=== PATIENT | female | born 1930 | race Hispanic/Latino ===

== ENCOUNTER 2017-09-24 12:26 | Inpatient (IN) | payer MEDICARE, OTHER ==
[~2017-09-24] VITALS: Ht 152.4 cm; Wt 59.0 kg
[~2017-09-24 12:26] MED LIST: ARTHRITIS MEDICATION; ASPIRIN81 M1 PO
[2017-09-24 12:56] VITALS: BP 114/80
[2017-09-24 13:09] LABS: BASOPHILS % (AUTO) 0.7 % (0.0-2.0); EOSINOPHILS % (AUTO) 1.3 % (0.0-3.0); HEMATOCRIT 38.5 % (37.0-47.0); HEMOGLOBIN 12.7 G/DL (12.0-16.0); LYMPHOCYTES % (AUTO) 16.2 % (20.0-45.0); MEAN CORPUSCULAR VOLUME 92 FL (80-99); MONOCYTES % (AUTO) 8.1 % (1.0-10.0); NEUTROPHILS % (AUTO) 73.7 % (45.0-75.0); PLATELET COUNT 181 K/UL (150-450); RED BLOOD COUNT 4.18 M/UL (4.20-5.40); RED CELL DISTRIBUTION WIDTH 14.2 % (11.6-14.8); WHITE BLOOD COUNT 7.7 K/UL (4.8-10.8)
[2017-09-24 13:32] LABS: ANION GAP 6 mmol/L (5-15); BLOOD UREA NITROGEN 15 mg/dL (7-18); CALCIUM 9.7 MG/DL (8.5-10.1); CARBON DIOXIDE 29 MMOL/L (21-32); CHLORIDE 99 MMOL/L (98-107); CREATININE 0.8 MG/DL (0.55-1.30); POTASSIUM 4.4 MMOL/L (3.5-5.1); SODIUM 134 MMOL/L (136-145)
[2017-09-24 13:37] LABS: ALANINE AMINOTRANSFERASE 21 U/L (12-78); ALBUMIN 3.6 G/DL (3.4-5.0); ALBUMIN/GLOBULIN RATIO 0.8 (1.0-2.7); ALKALINE PHOSPHATASE 153 U/L (46-116); ASPARTATE AMINO TRANSFERASE 46 U/L (15-37); BILIRUBIN,TOTAL 0.4 MG/DL (0.2-1.0)
--- NOTE | 2017-09-24 14:01 | Diagnostic Imaging Report ---
Indications: hip pain Findings: Two views of the left hip were obtained. No acute fracture is demonstrated. Bones are osteopenic. Alignment of the hip is within normal limits. Soft tissues are unremarkable. Extensive femoral artery calcification noted. Impression: Negative for acute injury.
--- NOTE | 2017-09-24 14:02 | Emergency Room Report ---
History of Present Illness General Chief Complaint: Multiple Trauma/Fall Source: Patient Present Illness HPI This patient states she was trying to go down steps and missed a step and fell onto her left hip. The fall was yesterday. She has been unable to ambulate or bear weight on the left leg ever since. She has no other injuries or complaints. She denies chest pain or shortness of breath. She denies abdominal pain. She denies headache or neck pain. She denies head injury. Allergies: Coded Allergies: PENICILLINS (Verified Allergy, Unknown, Rash, 09/24/17) Patient History Past Medical History: see triage record, HTN, GERD Past Surgical History: CABG Social History: Denies: smoking, alcohol use, drug use Reviewed Nursing Documentation: PMH: Agreed; PSxH: Agreed Nursing Documentation-PMH Hx Cardiac Problems: Yes - SLOW HEARTBEAT; HOSPITALIZED AT [facility] Hx Hypertension: Yes Hx Cancer: No Hx Neurological Problems: No Review of Systems All Other Systems: negative except mentioned in HPI Physical Exam Vital Signs Date Time Temp Pulse Resp B/P (MAP) Pulse Ox O2 Delivery O2 Flow Rate FiO2 09/24/17 12:23 97.5 96 16 141/80 98 Room Air 97.5 Sp02 EP Interpretation: reviewed, normal General Appearance: no apparent distress, alert, GCS 15, non-toxic Head: normocephalic, atraumatic Eyes: bilateral eye normal inspection, bilateral eye PERRL ENT: hearing grossly normal, normal pharynx, no angioedema, normal voice Neck: full range of motion, supple/symm/no masses Respiratory: chest non-tender, lungs clear, normal breath sounds, no respiratory distress, no retraction, no accessory muscle use, speaking full sentences Cardiovascular #1: regular rate, rhythm, no edema Gastrointestinal: normal bowel sounds, non tender, soft, non-distended, no guarding, no rebound Rectal: deferred Musculoskeletal: other - L. hip TTP laterally. Hip externally rotated. +pain w/ ROM of L. hip. Neurologic: alert, oriented x3, responsive, motor strength/tone normal, sensory intact, speech normal Psychiatric: judgement/insight normal, mood/affect normal, no suicidal/ homicidal ideation Skin: normal color, no rash, warm/dry, well hydrated Medical Decision Making Diagnostic Impression: Primary Impression: Acetabulum fracture, left ER Course This patient has an acetabular fracture of the left acetabulum. She is unable to ambulate. She'll be admitted for evaluation by orthopedics and for further evaluation, monitoring and treatment. Laboratory Tests Test 09/24/17 12:45 09/24/17 14:30 White Blood Count 7.7 K/UL (4.8-10.8) Red Blood Count 4.18 M/UL (4.20-5.40) L Hemoglobin 12.7 G/DL (12.0-16.0) Hematocrit 38.5 % (37.0-47.0) Mean Corpuscular Volume 92 FL (80-99) Mean Corpuscular Hemoglobin 30.5 PG (27.0-31.0) Mean Corpuscular Hemoglobin Concent 33.1 G/DL (32.0-36.0) Red Cell Distribution Width 14.2 % (11.6-14.8) Platelet Count 181 K/UL (150-450) Mean Platelet Volume 7.0 FL (6.5-10.1) Neutrophils (%) (Auto) 73.7 % (45.0-75.0) Lymphocytes (%) (Auto) 16.2 % (20.0-45.0) L Monocytes (%) (Auto) 8.1 % (1.0-10.0) Eosinophils (%) (Auto) 1.3 % (0.0-3.0) Basophils (%) (Auto) 0.7 % (0.0-2.0) Prothrombin Time 10.2 SEC (9.30-11.50) Prothrombin Time INR 1.0 (0.9-1.1) PTT 26 SEC (23-33) Sodium Level 134 MMOL/L (136-145) L Potassium Level 4.4 MMOL/L (3.5-5.1) Chloride Level 99 MMOL/L (98-107) Carbon Dioxide Level 29 MMOL/L (21-32) Anion Gap 6 mmol/L (5-15) Blood Urea Nitrogen 15 mg/dL (7-18) Creatinine 0.8 MG/DL (0.55-1.30) Estimate Glomerular Filtration Rate mL/min (>60) Glucose Level 111 MG/DL (74-106) H Calcium Level 9.7 MG/DL (8.5-10.1) Total Bilirubin 0.4 MG/DL (0.2-1.0) Aspartate Amino Transferase (AST) 46 U/L (15-37) H Alanine Aminotransferase (ALT) 21 U/L (12-78) Alkaline Phosphatase 153 U/L (46-116) H Total Protein 8.1 G/DL (6.4-8.2) Albumin 3.6 G/DL (3.4-5.0) Globulin 4.5 g/dL Albumin/Globulin Ratio 0.8 (1.0-2.7) L Urine Color Pending Urine Appearance Pending Urine pH Pending Urine Specific [place] Pending Urine Protein Pending Urine Glucose (UA) Pending Urine Ketones Pending Urine Occult Blood Pending Urine Nitrite Pending Urine Bilirubin Pending Urine Urobilinogen Pending Urine Leukocyte Esterase Pending Last Vital Signs Date Time Temp Pulse Resp B/P (MAP) Pulse Ox O2 Delivery O2 Flow Rate FiO2 09/24/17 12:56 97.5 78 16 114/80 98 Room Air 97.5 Disposition: ADMITTED INPATIENT Condition: Stable Referrals: [facility],REFERRING (PCP) JEZ VILLANUEVA D.O. Sep 24, 2017 14:02
[2017-09-24] MEDS ORDERED: NKM (14:41)
--- NOTE | 2017-09-24 14:46 | Diagnostic Imaging Report ---
Indication: Abdominal pain Technique: Continuous helical transaxial imaging of the pelvis was obtained from the iliac crest to the pubic symphysis. Coronal 2-D reformats were also obtained. Study obtained in a Siemens sensation [address] Intravenous non-ionic contrast was administered. Total Dose length Product (DLP): 302.[address] Dose Index Volume (CTDIvol): 11.14 mGy Comparison: None Findings: There is a nondisplaced fracture involving the junction of the left superior pubic ramus and the anterior column of the left acetabulum. The fracture is nondisplaced and probably intra-articular extending into the left hip joint. The left femoral neck and the remainder of the visualized left proximal femur appears normal. The sacrum and remainder of the pelvic bones show no evidence of acute injury. Bones are osteopenic. There is vacuum phenomena and narrowing of the intervertebral discs at L5-S1 and L4-5. There is hypertrophy of the facets at L4-5 and L5-S1. The facet disease appears to be worse on the left side. Vacuum phenomenon noted within the sacroiliac joints. The urinary bladder is moderately distended. There are diverticula within the visualized part of the colon. The appendix is normal. An atrophic uterus is noted. IMPRESSION: Acute nondisplaced fracture involving the anterior column of the left acetabulum. No other fractures are identified. This is not visualized on plain film even in retrospect. Incidental findings including degenerative changes of the lower lumbar spine, distended urinary bladder, arterial vascular disease, normal appendix and diverticulosis of the colon The CT scanner at [facility] is accredited by the [employer] and the scans are performed using dose optimization techniques as appropriate to a performed exam including Automatic Exposure control.
[2017-09-24 14:55] VITALS: BP 139/68
[2017-09-24 14:55] LABS: APPEARANCE,URINE SLIGHTLY CLOUDY; BILIRUBIN, URINE NEGATIVE (NEGATIVE); COLOR,URINE PALE YELLOW; GLUCOSE, URINE (UA) NEGATIVE (NEGATIVE); KETONES,URINE NEGATIVE (NEGATIVE); LEUKOCYTE ESTERASE ,URINE 2+ (NEGATIVE); NITRITE,URINE NEGATIVE (NEGATIVE); PH,URINE 7 (4.5-8.0); PROTEIN,URINE NEGATIVE (NEGATIVE); UROBILINOGEN,URINE NORMAL MG/DL (0.0-1.0)
[2017-09-24] MEDS ORDERED: Morphine Sulfate 4mg/ml Inj IVP ONE (15:15)
[2017-09-24 16:00] VITALS: BP 149/77
[2017-09-24] MEDS ORDERED: Hydromorphone 0.5mg/0.5ml inj IVP PRN (17:30)
[2017-09-24] MEDS ORDERED: Acetaminophen 650 MG SUPP RECTAL PRN ×2 (17:30)
[2017-09-24] MEDS ORDERED: Miralax 17gm pkt ORAL PRN (17:30)
--- NOTE | 2017-09-24 17:30 | History and Physical ---
History of Present Illness General Date patient seen: Sep 24, 2017 Time patient seen: 17:29 Reason for Hospitalization: Multiple Trauma/Fall, L hip fracture Present Illness HPI 87y/o female with pmh of HTN, CAD s/p CABG, GERD who presents with L hip pain s/ p fall. Per daughter at bedside pt fell yesterday when she missed a step trying to go downstairs. C/o L hip pain afterwards. She has been unable to ambulate or bear weight on L leg since. Denies f/c, n/v, d/c, chest pain, SOB, abd pain. At baseline pt able to ambulate a few feet and at least a flight of stairs. Denies h/o PA/CHF/DM/PVD/CVA. PMH: CAD s/p CABG, GERD, HTN Social history: lives w/ daughter, denies T/E/D FMH: [place] Allergies: Coded Allergies: PENICILLINS (Verified Allergy, Unknown, Rash, 09/24/17) Medication History Scheduled Aspirin (Aspirin), 81 MG PO DAILY, (Reported) No Known Medications* (NKM - No Known Medications*), 0 ., (Reported) Miscellaneous Medications [Arthritis Medication], (Reported) Patient History History Provided By: Patient, Family Member, Medical Record Healthcare decision maker N Resuscitation status Advanced Directive on File Review of Systems Constitutional: Reports: no symptoms Eye: Reports: no symptoms ENT: Reports: no symptoms Respiratory: Reports: no symptoms Cardiovascular: Reports: no symptoms Gastrointestinal: Reports: no symptoms Genitourinary: Reports: no symptoms Musculoskeletal: Reports: joint pain Skin: Reports: no symptoms Psychiatric: Reports: no symptoms Neurological: Reports: no symptoms Endocrine: Reports: no symptoms Hematologic/Lymphatic: Reports: no symptoms Physical Exam Physical Exam Narrative General: alert, cooperative, no distress, appears stated age Head: normocephalic, without obvious abnormality, atraumatic Eyes: conjunctivae/corneas clear. PERRL, EOM's intact Throat: lips, mucosa, and tongue normal. MMM Neck: supple, symmetrical, trachea midline, and no JVD Lungs: clear to auscultation bilaterally Heart: regular rate and rhythm, S1, S2 normal, no murmur, click, rub or gallop Abdomen: soft, non-tender, non-distended, bowel sounds normal; no masses or organomegaly Extremities: extremities normal, atraumatic, no cyanosis or edema Pulses: 2+ and symmetric Skin: skin color, texture, turgor normal; no rashes or lesions Neurologic: grossly normal, no focal deficits Last 24 Hour Vital Signs Date Time Temp Pulse Resp B/P (MAP) Pulse Ox O2 Delivery O2 Flow Rate FiO2 09/24/17 16:30 83 20 139/68 98 Room Air 09/24/17 14:55 83 20 139/68 98 Room Air 09/24/17 12:56 97.5 78 16 114/80 98 Room Air 97.5 09/24/17 12:23 97.5 96 16 141/80 98 Room Air 97.5 Laboratory Tests Test 09/24/17 12:45 09/24/17 14:30 White Blood Count 7.7 K/UL (4.8-10.8) Red Blood Count 4.18 M/UL (4.20-5.40) L Hemoglobin 12.7 G/DL (12.0-16.0) Hematocrit 38.5 % (37.0-47.0) Mean Corpuscular Volume 92 FL (80-99) Mean Corpuscular Hemoglobin 30.5 PG (27.0-31.0) Mean Corpuscular Hemoglobin Concent 33.1 G/DL (32.0-36.0) Red Cell Distribution Width 14.2 % (11.6-14.8) Platelet Count 181 K/UL (150-450) Mean Platelet Volume 7.0 FL (6.5-10.1) Neutrophils (%) (Auto) 73.7 % (45.0-75.0) Lymphocytes (%) (Auto) 16.2 % (20.0-45.0) L Monocytes (%) (Auto) 8.1 % (1.0-10.0) Eosinophils (%) (Auto) 1.3 % (0.0-3.0) Basophils (%) (Auto) 0.7 % (0.0-2.0) Prothrombin Time 10.2 SEC (9.30-11.50) Prothromb Time International Ratio 1.0 (0.9-1.1) Activated Partial Thromboplast Time 26 SEC (23-33) Sodium Level 134 MMOL/L (136-145) L Potassium Level 4.4 MMOL/L (3.5-5.1) Chloride Level 99 MMOL/L (98-107) Carbon Dioxide Level 29 MMOL/L (21-32) Anion Gap 6 mmol/L (5-15) Blood Urea Nitrogen 15 mg/dL (7-18) Creatinine 0.8 MG/DL (0.55-1.30) Estimat Glomerular Filtration Rate mL/min (>60) Glucose Level 111 MG/DL (74-106) H Calcium Level 9.7 MG/DL (8.5-10.1) Total Bilirubin 0.4 MG/DL (0.2-1.0) Aspartate Amino Transf (AST/SGOT) 46 U/L (15-37) H Alanine Aminotransferase (ALT/SGPT) 21 U/L (12-78) Alkaline Phosphatase 153 U/L (46-116) H Total Protein 8.1 G/DL (6.4-8.2) Albumin 3.6 G/DL (3.4-5.0) Globulin 4.5 g/dL Albumin/Globulin Ratio 0.8 (1.0-2.7) L Urine Color Pale yellow Urine Appearance Slightly cloudy Urine pH 7 (4.5-8.0) Urine Specific [place] 1.015 (1.005-1.035) Urine Protein Negative (NEGATIVE) Urine Glucose (UA) Negative (NEGATIVE) Urine Ketones Negative (NEGATIVE) Urine Occult Blood 3+ (NEGATIVE) H Urine Nitrite Negative (NEGATIVE) Urine Bilirubin Negative (NEGATIVE) Urine Urobilinogen Normal MG/DL (0.0-1.0) Urine Leukocyte Esterase 2+ (NEGATIVE) H Urine RBC 2-4 /HPF (0 - 2) H Urine WBC 10-15 /HPF (0 - 2) H Urine Squamous Epithelial Cells Many /LPF (NONE/OCC) H Urine Bacteria Occasional /HPF (NONE) Height (Feet): 5 Weight (Pounds): 130 Medications Current Medications Medications (Trade) Dose Ordered Sig/Fernandez Route PRN Reason Start Time Stop Time Status Last Admin Dose Admin Acetaminophen (Tylenol) 650 mg Q4H PRN ORAL Mild Pain (Pain Scale 1-3) 09/24/17 17:30 10/24/17 17:29 UNV Acetaminophen (Tylenol) 650 mg Q4H PRN ORAL fever 09/24/17 17:30 10/24/17 17:29 UNV Acetaminophen (Tylenol) 650 mg Q4H PRN RECTAL Mild Pain (Pain Scale 1-3) 09/24/17 17:30 10/24/17 17:29 UNV Acetaminophen (Tylenol) 650 mg Q4H PRN RECTAL fever 09/24/17 17:30 10/24/17 17:29 UNV Bisacodyl (Dulcolax) 10 mg HSPRN PRN RECTAL Constipation 09/24/17 17:30 10/24/17 17:29 UNV Dextrose (Dextrose 50%) 25 ml STAT PRN IV Hypoglycemia 09/24/17 17:30 10/24/17 17:29 UNV Dextrose (Dextrose 50%) 50 ml STAT PRN IV Hypoglycemia 09/24/17 17:30 10/24/17 17:29 UNV Dextrose/Sodium Chloride 1,000 ml @ 75 mls/hr [id number] IV 09/24/17 18:21 10/24/17 18:20 UNV Docusate Sodium (Colace) 100 mg EVERY 12 HOURS ORAL 09/24/17 21:00 10/24/17 20:59 UNV Hydromorphone HCl (Dilaudid) 0.5 mg Q4H PRN IVP moderate to severe pain 09/24/17 17:30 10/01/17 17:29 UNV Morphine Sulfate (Morphine Sulfate) 4 mg Q4H PRN IVP For Pain 09/24/17 17:30 10/01/17 17:29 UNV Ondansetron HCl (Zofran) 4 mg Q6H PRN IVP Nausea & Vomiting 09/24/17 17:30 10/24/17 17:29 UNV Polyethylene Glycol (Miralax) 17 gm HSPRN PRN ORAL Constipation 09/24/17 17:30 10/24/17 17:29 UNV Sodium Chloride 1,000 ml @ 150 mls/hr Q6H40M IV 09/24/17 15:15 10/24/17 15:14 09/24/17 15:10 Assessment/Plan Problem List: (1) Acetabulum fracture, left ICD Codes: S32.402A - Unspecified fracture of left acetabulum, initial encounter for closed fracture SNOMED: [id number] Status: stable Assessment/Plan Admit inpt Ortho consulted in ED (Dr. Gaytan) NPO at [place] for possible OR mIVFs Hold home ASA Check TTE Pain control, bowel regimen Supportive care DVT ppx: SCDs for now, start AC postop FULL CODE D/w pt/pt's daughter, RN, ER physician regarding mgmt Mary Noel M.D. Sep 24, 2017 17:30
--- NOTE | 2017-09-24 18:09 | Diagnostic Imaging Report ---
EXAM: XR Chest, 1 View CLINICAL HISTORY: PREOP TECHNIQUE: Frontal view of the chest. COMPARISON: No relevant prior studies available. FINDINGS: Lungs: Mild basilar atelectasis. Pleural space: Unremarkable. No pneumothorax. Heart: Unremarkable. No cardiomegaly. Mediastinum: Unremarkable. Bones/joints: Sternotomy. IMPRESSION: Mild basilar atelectasis.
[2017-09-24] MEDS: D5NS 1,000 ML IV SCH (18:14)
[2017-09-24] MEDS: Morphine Sulfate 4mg/ml Inj IVP PRN (18:14)
[2017-09-24] MEDS ORDERED: D5 1/2NS 1,000 ML IV SCH (18:21)
[2017-09-24 20:00] VITALS: BP 150/71
[2017-09-24] MEDS: Docusate 100mg cap ORAL SCH (20:35)
[2017-09-25] VITALS (7 sets, daily range): BP systolic 123–141; BP diastolic 63–70
[2017-09-25] MEDS: Morphine Sulfate 4mg/ml Inj IVP PRN ×3 (01:02→19:59)
[2017-09-25] MEDS: D5NS 1,000 ML IV SCH ×2 (06:19→19:59)
[2017-09-25 08:39] LABS: BASOPHILS % (AUTO) 0.8 % (0.0-2.0); HEMATOCRIT 34.2 % (37.0-47.0); HEMOGLOBIN 11.7 G/DL (12.0-16.0); LYMPHOCYTES % (AUTO) 24.1 % (20.0-45.0); MEAN CORPUSCULAR VOLUME 93 FL (80-99); MONOCYTES % (AUTO) 8.1 % (1.0-10.0); NEUTROPHILS % (AUTO) 63.1 % (45.0-75.0); PLATELET COUNT 151 K/UL (150-450); RED BLOOD COUNT 3.69 M/UL (4.20-5.40); RED CELL DISTRIBUTION WIDTH 14.4 % (11.6-14.8); WHITE BLOOD COUNT 7.5 K/UL (4.8-10.8)
[2017-09-25 08:53] LABS: ANION GAP 7 mmol/L (5-15); BLOOD UREA NITROGEN 9 mg/dL (7-18); CALCIUM 9.3 MG/DL (8.5-10.1); CARBON DIOXIDE 26 MMOL/L (21-32); CHLORIDE 101 MMOL/L (98-107); CREATININE 0.8 MG/DL (0.55-1.30); POTASSIUM 4.4 MMOL/L (3.5-5.1); SODIUM 134 MMOL/L (136-145)
[2017-09-25] MEDS: Docusate 100mg cap ORAL SCH ×2 (09:00→19:58)
[2017-09-26] MEDS: Morphine Sulfate 4mg/ml Inj IVP PRN ×2 (03:47→19:16)
[2017-09-26 04:10] VITALS: BP 126/61
[2017-09-26 07:55] VITALS: BP 149/69
[2017-09-26] MEDS: Docusate 100mg cap ORAL SCH ×2 (08:27→21:09)
[2017-09-26] MEDS: D5NS 1,000 ML IV SCH ×2 (11:03→23:35)
[2017-09-26 11:59] VITALS: BP 142/70
--- NOTE | 2017-09-26 14:27 | Orthopedic Progress Note ---
Orthopedic - Progress Note Subjective Additional Comments left hip pain. Objective Vital Signs Last 24 Hour Vital Signs Date Time Temp Pulse Resp B/P (MAP) Pulse Ox O2 Delivery O2 Flow Rate FiO2 09/26/17 11:59 98.0 72 18 142/70 98 Room Air 98.0 09/26/17 07:55 97.8 82 19 149/69 98 Room Air 97.8 09/26/17 04:10 97.5 63 19 126/61 97 Room Air 97.5 09/25/17 23:59 97.1 72 19 132/66 96 Room Air 97.1 09/25/17 20:59 96.4 09/25/17 20:05 96.4 79 18 129/64 97 Room Air 96.4 09/25/17 16:11 97.7 80 18 133/67 98 Room Air 97.7 I&O Intake and Output 09/25/17 09/26/17 19:00 07:00 Intake Total 975 ml 900 ml Output Total 1650 ml Balance 975 ml -750 ml Intake IV Total 975 ml 900 ml Output Urine Total 1650 ml Drains: none Neuro Status: normal Vascular Status: normal Plan Plan: PT, discharge plan Additional Comments May be WBAT without restriction left lower extremity. D/C to home with services vs SNF/Rehab when medically safe. Follow up prn Camilo Gaytan MD Sep 26, 2017 14:27
[2017-09-26 15:03] LABS: ANION GAP 10 mmol/L (5-15); BLOOD UREA NITROGEN 7 mg/dL (7-18); CALCIUM 8.8 MG/DL (8.5-10.1); CARBON DIOXIDE 25 MMOL/L (21-32); CHLORIDE 98 MMOL/L (98-107); CREATININE 0.7 MG/DL (0.55-1.30); POTASSIUM 4.2 MMOL/L (3.5-5.1); SODIUM 133 MMOL/L (136-145)
[2017-09-26 16:00] VITALS: BP 109/61
[2017-09-26] MEDS ORDERED: D5NS 1000ml IV ONE (17:07)
--- NOTE | 2017-09-26 17:30 | Progress Note ---
DATE: 09/25/2017 SUBJECTIVE: An 87-year-old female with left hip fracture, status post fall from stairs. The patient continued to have pain orthopedic consultation. We will continue pain control the patient n.p.o. for possible surgical intervention. We will defer that to Dr. Gaytan. Otherwise, the patient is doing well, in no apparent distress. OBJECTIVE: VITAL SIGNS: Temperature 97.7, pulse of 80, respirations 18, blood pressure . GENERAL: Awake, alert, throbbing pain in her hips. HEENT: PERRLA. CARDIOVASCULAR: S1, S2. Regular rate and rhythm. RESPIRATORY: Bilateral breath sounds. No wheezing, rhonchi, or rales. ABDOMEN: Soft, nontender, nondistended. LOWER EXTREMITIES: The patient has pain in her lower extremities . IMPRESSION AND PLAN: fracture of the left. Ortho consulted recommendations. Keep the patient NPO, hold on aspirin. Pain control, bowel regimen, and supportive care. Aylin Oh MD DR: POONAM JOB#: [id number] CC:
[2017-09-26 20:00] VITALS: BP 118/69
[2017-09-26] MEDS ORDERED: OMEPRAZOLE20 M3 ORAL (20:19)
[2017-09-26 20:42] VITALS: BP 118/69
--- NOTE | 2017-09-26 22:45 | Progress Note ---
DATE: 09/26/2017 SUBJECTIVE: The patient is seen and examined. Resting comfortably. No acute distress. The patient still has pain on ambulation especially when working with physical therapy. She continued to be on morphine for pain management. We will continue to monitor the patient. Seen by Orthopedic Surgery. Did not recommend surgery at this time. We will continue on conservative management. Once the patient is medically stable, she can be discharged back to [facility] facility. OBJECTIVE: VITAL SIGNS: Temperature 98, respirations 18, pulse 72, and blood pressure 142/70. ASSESSMENT AND PLAN: fracture of the left acetabulum. Continue home medications. Continue pain management. Continue PT. Ortho consulted. No surgical intervention at this time. Continue bowel regimen. Continue supportive care. Aylin Oh MD DR: LA JOB#: [id number] CC:
--- NOTE | 2017-09-27 | Consultation ---
DATE OF CONSULTATION: 09/25/2017 ORTHOPEDIC CONSULTATION CONSULTING PHYSICIAN: Camilo Gaytan M.D. REQUESTING PHYSICIAN: Guille Strickland M.D. DIAGNOSIS: Left acetabular nondisplaced fracture (pelvic fracture). HISTORY: The patient is an 87-year-old woman, who slipped and fell at home. She was seen in the emergency room. She was diagnosed with possible left hip fracture and radiographs/CT scan revealed a nondisplaced left acetabular fracture outside of the weightbearing area. She has had difficulty ambulating and pain since that time. PAST MEDICAL HISTORY: She has a past medical history significant for coronary artery disease, status post coronary artery bypass grafting. She has a history of hypertension and gastroesophageal reflux disorder. MEDICATIONS: She takes aspirin. ALLERGIES: She has an allergy to penicillin. REVIEW OF SYSTEMS: A 12-point review of systems negative other than history of present illness. PHYSICAL EXAMINATION: GENERAL: She is a frail elderly woman, who does not speak German. EXTREMITIES: Any movement of the left lower extremity causes mild hip pain. Distal left lower extremity neurovascular examination is grossly intact. DIAGNOSTIC DATA: X-ray/CT scan reveal a nondisplaced acetabular fracture outside the weightbearing surface (pelvic fracture). ASSESSMENT AND PLAN: The patient is an 87-year-old woman, who slipped and fell, and has an insufficiency fracture of her pelvis. She may be weightbearing as her pain tolerates. She has no restrictions related to her pelvic fracture. She may be mobilized as needed. If she is going to be bed rest, DVT prophylaxis is recommended. Thank you for the opportunity to consult. No need for operative intervention. Camilo Gaytan M.D. DR: Symone JOB#: [id number] CC:
[2017-09-27 00:13] VITALS: BP 121/64
[2017-09-27] MEDS: Morphine Sulfate 4mg/ml Inj IVP PRN ×2 (00:26→11:52)
[2017-09-27] MEDS: D5NS 1,000 ML IV SCH ×2 (03:00→14:51)
[2017-09-27 04:42] VITALS: BP 142/72
[2017-09-27 08:00] VITALS: BP 97/52
[2017-09-27] MEDS: Docusate 100mg cap ORAL SCH ×2 (08:29→21:10)
[2017-09-27 12:00] VITALS: BP 155/65
--- NOTE | 2017-09-27 13:10 | General Progress Note ---
Subjective Date patient seen: Sep 27, 2017 Allergies: Coded Allergies: PENICILLINS (Verified Allergy, Unknown, Rash, 09/24/17) Objective Last 24 Hour Vital Signs Date Time Temp Pulse Resp B/P (MAP) Pulse Ox O2 Delivery O2 Flow Rate FiO2 09/27/17 12:00 99.0 70 18 155/65 97 Room Air 99.0 09/27/17 11:52 97.9 09/27/17 08:00 97.9 65 17 97/52 100 Room Air 97.9 09/27/17 05:00 Room Air 09/27/17 04:42 98.2 87 18 142/72 100 98.2 09/27/17 01:00 Room Air 09/27/17 00:13 98.4 69 18 121/64 96 98.4 09/27/17 00:00 Room Air 09/26/17 20:42 98.6 72 17 118/69 95 98.6 09/26/17 20:00 98.6 72 17 118/69 95 Room Air 98.6 09/26/17 19:16 97.6 09/26/17 16:00 97.6 62 18 109/61 98 Room Air 97.6 Intake and Output 09/26/17 09/27/17 19:00 07:00 Intake Total 675 ml 915 ml Output Total 400 ml Balance 275 ml 915 ml Intake Oral 240 ml IV Total 675 ml 675 ml Output Urine Total 400 ml # Voids 1 Laboratory Tests 09/26/17 14:36: Sodium Level 133L, Potassium Level 4.2, Chloride Level 98, Carbon Dioxide Level 25, Anion Gap 10, Blood Urea Nitrogen 7, Creatinine 0.7, Estimat Glomerular Filtration Rate , Glucose Level 121H, Calcium Level 8.8 Height (Feet): 5 Height (Inches): 0.00 Weight (Pounds): 130 Clementine Sawant NP Sep 27, 2017 13:10
[2017-09-27 16:00] VITALS: BP 129/62
[2017-09-27] MEDS ORDERED: HydrOXYzine tab 25 MG TAB ORAL PRN (18:15)
--- NOTE | 2017-09-28 12:55 | Cardiology Report ---
APPROVED REPORT EXAM: Two-dimensional and M-mode echocardiogram with Doppler and color Doppler. INDICATION Pre-Op M-Mode DIMENSIONS IVSd1.1 (0.7-1.1cm)Left Atrium (MM)2.5 (1.6-4.0cm) LVDd3.7 (3.5-5.6cm)Aortic Root2.4 (2.0-3.7cm) PWd1.1 (0.7-1.1cm)Aortic Cusp Exc.1.7 (1.5-2.0cm) LVDs1.7 (2.5-4.0cm) PWs2.0 cm Technically difficult and limited study due to poor acoustic windows. Study quality precludes accurate assessment of regional wall motion. Normal left ventricular chamber size. Mildly depressed systolic function and wall motion. Left ventricular ejection fraction estimated to be55-60 %. Borderline left ventricular hypertrophy. Anterior Echo-free space, may be due to pericardial fat or effusion. All other cardiac chamber sizes are within normal limits. Mild focal aortic valve sclerosis with adequate cusp excursion. Mildly thickened mitral valve leaflets with normal excursion. Mild mitral annulus and aortic root calcification. Pulmonic valve not visualized. Normal tricuspid valve structure. IVC is normal in size with physiological collapse. A color flow and spectral Doppler study was performed and revealed: Mild aortic insufficiency. No mitral regurgitation. Mitral diastolic velocities suggest mild left ventricular diastolic dysfunction (Grade I). Mild tricuspid regurgitation. Tricuspid systolic velocities suggests peak right ventricular systolic pressure of 44 mmHg, consistent with mild pulmonary hypertension.
--- NOTE | 2017-09-28 14:14 | Discharge Summary ---
Discharge Summary Hospital Course Date of Admission Sep 24, 2017 at 14:21 Date of Discharge Sep 27, 2017 at 21:35 Admitting Diagnosis hip fracture, inability to ambulate HPI Heather Rodriguez is a 87 year old female who was admitted on Sep 24, 2017 at 14:21 for Hip Fracture,Inability To Ambulate 87y/o female with pmh of HTN, CAD s/p CABG, GERD who presents with L hip pain s/ p fall. Per daughter at bedside pt fell yesterday when she missed a step trying to go downstairs. C/o L hip pain afterwards. She has been unable to ambulate or bear weight on L leg since. Denies f/c, n/v, d/c, chest pain, SOB, abd pain. At baseline pt able to ambulate a few feet and at least a flight of stairs. Denies h/o WA/CHF/DM/PVD/CVA. Consultations Orthopaedic Procedures None Hospital Course Patient was noted to have a nondisplaced acetabular fracture outside the weightbearing surface (pelvic fracture) on CT. Orthopaedic consultation was requested. No surgical interventions were recommended and patient was recommended to have rehab with no restrictions related to her pelvic fracture. Patient was given DVT ppx and was discharged to SNF for further PT/OT. Patient was stable for discharge and plan of care was further discussed and agreed with by patient's DPOA. Discharge Medications Continued Medications: Aspirin (Aspirin) 81 Mg Tablet 81 MG PO DAILY (This prescription has been renewed) Omeprazole (Omeprazole) 20 Mg Tablet.dr 20 MG ORAL DAILY, TAB (This prescription has been renewed) Discharge Condition Upon Discharge: stable Discharge Disposition Patient was discharged to SNF/Subacute Facility(03) Discharge Diagnoses: (1) Hip fracture, left Clementine Sawant CONFIGURATION MANAGEMENT SPECIALIST Sep 28, 2017 14:14
--- NOTE | 2017-09-28 14:18 | Cardiology Report ---
APPROVED REPORT EKG Measurement Heart [id number] Normal sinus rhythm Nonspecific intraventricular block Abnormal ECG
== END 2017-09-27 21:35 | DRG 536 ==
LOC: EDBD 12:26 → EMR 13:11 → 4E 14:21 → EDBEDREQ 14:45 → 3E 09-26 12:15
DX: S32.402A Unspecified fracture of left acetabulum, initial encounter for closed fracture (principal); W10.8XXA Fall (on) (from) other stairs and steps, initial encounter; Y92.008 Other place in unspecified non-institutional (private) residence as the place of occurrence of the external cause; I10 Essential (primary) hypertension; I25.10 Atherosclerotic heart disease of native coronary artery without angina pectoris; Z95.1 Presence of aortocoronary bypass graft; K21.9 Gastro-esophageal reflux disease without esophagitis; Z88.0 Allergy status to penicillin
CPT/HCPCS: 36415; 71045; 72192; 73502; 80048; 80053; 81003; 83735; 85025; 85610; 85730; 87086; 93005; 93306; 99285; J2405

== ENCOUNTER 2019-06-21 15:17 | Emergency (ER) | payer MEDICARE, OTHER ==
[~2019-06-21] VITALS: Ht 157.5 cm; Wt 54.4 kg
[~2019-06-21 15:17] MED LIST changes: +NKM; +OMEPRAZOLE20 M3 ORAL
[2019-06-21] MEDS ORDERED: AMBIEN10 M1 ORAL (15:52)
[2019-06-21] MEDS ORDERED: ELIQUIS5 MG PO (15:52)
[2019-06-21] MEDS ORDERED: AMLODIPINE BESY10 MG ORAL (15:52)
[2019-06-21] MEDS ORDERED: COLACE100 MG ORAL (15:52)
[2019-06-21] MEDS ORDERED: DICLOFEN 3%-HYA30 GM TP (15:52)
[2019-06-21 16:45] LABS: EOSINOPHILS % (AUTO) 1.6 % (0.0-3.0); HEMATOCRIT 35.4 % (37.0-47.0); HEMOGLOBIN 11.3 G/DL (12.0-16.0); LYMPHOCYTES % (AUTO) 20.2 % (20.0-45.0); MEAN CORPUSCULAR VOLUME 88 FL (80-99); MONOCYTES % (AUTO) 5.8 % (1.0-10.0); NEUTROPHILS % (AUTO) 71.4 % (45.0-75.0); PLATELET COUNT 316 K/UL (150-450); RED BLOOD COUNT 4.02 M/UL (4.20-5.40); RED CELL DISTRIBUTION WIDTH 15.7 % (11.6-14.8)
[2019-06-21 16:46] LABS: BILIRUBIN, URINE NEGATIVE (NEGATIVE); COLOR,URINE PALE YELLOW; GLUCOSE, URINE (UA) NEGATIVE (NEGATIVE); KETONES,URINE NEGATIVE (NEGATIVE); LEUKOCYTE ESTERASE ,URINE 3+ (NEGATIVE); NITRITE,URINE NEGATIVE (NEGATIVE); PH,URINE 8 (4.5-8.0); PROTEIN,URINE NEGATIVE (NEGATIVE); UROBILINOGEN,URINE NORMAL MG/DL (0.0-1.0)
[2019-06-21 17:02] LABS: APPEARANCE,URINE SLIGHTLY CLOUDY
[2019-06-21 17:08] LABS: ANION GAP 11 mmol/L (5-15); BLOOD UREA NITROGEN 15 mg/dL (7-18); CALCIUM 9.9 MG/DL (8.5-10.1); CARBON DIOXIDE 26 MMOL/L (21-32); CHLORIDE 95 MMOL/L (98-107); CREATININE 0.7 MG/DL (0.55-1.30); POTASSIUM 3.9 MMOL/L (3.5-5.1); SODIUM 132 MMOL/L (136-145)
[2019-06-21 17:11] LABS: ALANINE AMINOTRANSFERASE 16 U/L (12-78); ALBUMIN 3.6 G/DL (3.4-5.0); ALBUMIN/GLOBULIN RATIO 0.7 (1.0-2.7); ALKALINE PHOSPHATASE 204 U/L (46-116); ASPARTATE AMINO TRANSFERASE 31 U/L (15-37); BILIRUBIN,TOTAL 0.2 MG/DL (0.2-1.0)
[2019-06-21] MEDS ORDERED: NITROFURANTOIN100 M2 ORAL (17:31)
[2019-06-21] MEDS ORDERED: FAMOTIDINE20 MG ORAL (17:31)
[2019-06-21] MEDS ORDERED: ONDANSETRON ODT4 MG BC (17:31)
[2019-06-21 18:00] VITALS: BP 144/68
--- NOTE | 2019-06-21 18:00 | NUR ---
ER DISCHARGE NOTE: Patient is cleared to be discharged per ERMD, pt is aox3, on room air, with stable vital signs. pt was given dc and prescription instructions, pt was able to verbalize understanding, pt id band and iv site removed without complications. pt is able to ambulate with steady gait. pt took all belongings. pt left ED accompanied by caregiver and daughter.
--- NOTE | 2019-06-21 19:07 | Emergency Room Report ---
History of Present Illness General Chief Complaint: Pain Source: Patient Present Illness HPI 88-year-old female presents the ED for evaluation. Daughter at bedside states that patient was having epigastric/chest pain x1 week. One episode of vomiting. Denies pain at this time. Denies shortness of breath. Denies fevers or chills. Denies any diarrhea. No other aggravating relieving factors. Denies any other associated symptoms Allergies: Coded Allergies: PENICILLINS (Verified Allergy, Unknown, Rash, 09/24/17) Patient History Past Medical History: HTN, asthma, GERD Past Surgical History: appy Pertinent Family History: none Social History: Denies: smoking, alcohol use, drug use Now: No Immunizations: UTD Reviewed Nursing Documentation: PMH: Agreed; PSxH: Agreed Nursing Documentation-PMH Past Medical History: No History, Except For Hx Cardiac Problems: Yes - SLOW HEARTBEAT; HOSPITALIZED AT [facility] [place] Hx Hypertension: Yes Hx Asthma: Yes Hx Cancer: No Hx Gastrointestinal Problems: Yes - appendicitis Hx Neurological Problems: No Review of Systems All Other Systems: negative except mentioned in HPI Physical Exam Vital Signs Date Time Temp Pulse Resp B/P (MAP) Pulse Ox O2 Delivery O2 Flow Rate FiO2 06/21/19 15:23 98.4 63 18 142/69 (93) 98 Room Air Sp02 EP Interpretation: reviewed, normal General Appearance: no apparent distress, alert, GCS 15, non-toxic Head: normocephalic, atraumatic Eyes: bilateral eye normal inspection, bilateral eye PERRL ENT: hearing grossly normal, normal pharynx, no angioedema, normal voice Neck: full range of motion, supple/symm/no masses Respiratory: chest non-tender, lungs clear, normal breath sounds, speaking full sentences Cardiovascular #1: regular rate, rhythm, no edema Cardiovascular #2: 2+ carotid (R), 2+ carotid (L), 2+ radial (R), 2+ radial (L) , 2+ dorsalis pedis (R), 2+ dorsalis pedis (L) Gastrointestinal: normal bowel sounds, non tender, soft, non-distended, no guarding, no rebound Rectal: deferred Genitourinary: normal inspection, no CVA tenderness Musculoskeletal: back normal, normal range of motion, gait/station normal, non- tender Neurologic: alert, motor strength/tone normal, oriented x3, sensory intact, responsive, speech normal Psychiatric: judgement/insight normal, memory normal, mood/affect normal, no suicidal/homicidal ideation Reflexes: 3+ bicep (R), 3+ bicep (L), 3+ tricep (R), 3+ tricep (L), 3+ knee (R) , 3+ knee (L) Lymphatic: no adenopathy Medical Decision Making Diagnostic Impression: Primary Impression: Gastritis Qualified Codes: K29.00 - Acute gastritis without bleeding Additional Impression: UTI (urinary tract infection) Qualified Codes: N39.0 - Urinary tract infection, site not specified ER Course Hospital Course 88-year-old F presents to ED with epigastric/chest pain x 1 week, with N/V. differential diagnosis: gastritis, SBO, cholecystits, ACS/AZ Clinical course Patient placed on stretcher. On campus monitor. After initial history and physical I ordered labs, IV fluids, pepcid, zofran, ekg Labs - no leukocytosis, no electrolyte abnormalities, LFTs normal, trop negative , UA + bacteria EKG - NSr, no acute ischemic changes interpreted by me I discussed findings with patient and family. Vital stable. Labs unremarkable. Afebrile, nontoxic-appearing. I discussed option for admission but patient and family would rather be discharged with antibiotics. Safe for discharge for close outpatient follow-up. States she has a PMD. Given antibiotics in ED I feel this is a highly complex case requiring extensive working including EKG/ Rhythm strip, Xray/CT/US, Blood/urine lab work, repeat exams while in ED, and administration of strong opiates/narcotics for pain control, admission to hospital or close patient follow up. Diagnosis - gastritis , UTI Stable and discharged to home with prescriptions for pepcid, zofran, macrobid. Followup with PMD. Return to ED if symptoms recur or worsen Labs Test 06/21/19 16:20 White Blood Count 11.0 K/UL (4.8-10.8) Red Blood Count 4.02 M/UL (4.20-5.40) Hemoglobin 11.3 G/DL (12.0-16.0) Hematocrit 35.4 % (37.0-47.0) Mean Corpuscular Volume 88 FL (80-99) Mean Corpuscular Hemoglobin 28.2 PG (27.0-31.0) Mean Corpuscular Hemoglobin Concent 32.1 G/DL (32.0-36.0) Red Cell Distribution Width 15.7 % (11.6-14.8) Platelet Count 316 K/UL (150-450) Mean Platelet Volume 7.2 FL (6.5-10.1) Neutrophils (%) (Auto) 71.4 % (45.0-75.0) Lymphocytes (%) (Auto) 20.2 % (20.0-45.0) Monocytes (%) (Auto) 5.8 % (1.0-10.0) Eosinophils (%) (Auto) 1.6 % (0.0-3.0) Basophils (%) (Auto) 1.0 % (0.0-2.0) Urine Color Pale yellow Urine Appearance Slightly cloudy Urine pH 8 (4.5-8.0) Urine Specific [place] 1.010 (1.005-1.035) Urine Protein Negative (NEGATIVE) Urine Glucose (UA) Negative (NEGATIVE) Urine Ketones Negative (NEGATIVE) Urine Blood 2+ (NEGATIVE) Urine Nitrite Negative (NEGATIVE) Urine Bilirubin Negative (NEGATIVE) Urine Urobilinogen Normal MG/DL (0.0-1.0) Urine Leukocyte Esterase 3+ (NEGATIVE) Urine RBC 2-4 /HPF (0 - 2) Urine WBC 15-20 /HPF (0 - 2) Urine Squamous Epithelial Cells Moderate /LPF (NONE/OCC) Urine Bacteria Many /HPF (NONE) Sodium Level 132 MMOL/L (136-145) Potassium Level 3.9 MMOL/L (3.5-5.1) Chloride Level 95 MMOL/L (98-107) Carbon Dioxide Level 26 MMOL/L (21-32) Anion Gap 11 mmol/L (5-15) Blood Urea Nitrogen 15 mg/dL (7-18) Creatinine 0.7 MG/DL (0.55-1.30) Estimat Glomerular Filtration Rate > 60 mL/min (>60) Glucose Level 95 MG/DL (74-106) Calcium Level 9.9 MG/DL (8.5-10.1) Total Bilirubin 0.2 MG/DL (0.2-1.0) Aspartate Amino Transf (AST/SGOT) 31 U/L (15-37) Alanine Aminotransferase (ALT/SGPT) 16 U/L (12-78) Alkaline Phosphatase 204 U/L (46-116) Troponin I 0.000 ng/mL (0.000-0.056) Total Protein 8.5 G/DL (6.4-8.2) Albumin 3.6 G/DL (3.4-5.0) Globulin 4.9 g/dL Albumin/Globulin Ratio 0.7 (1.0-2.7) Lipase 178 U/L (73-393) Last Vital Signs Date Time Temp Pulse Resp B/P (MAP) Pulse Ox O2 Delivery O2 Flow Rate FiO2 06/21/19 15:23 98.4 63 18 142/69 (93) 98 Room Air Status: improved Disposition: HOME, SELF-CARE Condition: Stable Scripts Ondansetron Odt* (ZOFRAN ODT*) 4 Mg Tab.rapdis 4 MG BC EVERY 6 HOURS PRN for Nausea & Vomiting, #20 TAB 0 Refills Prov: Kristopher Kilpatrick MD 06/21/19 Famotidine* (Pepcid 20mg tablet*) 20 Mg Tablet 20 MG ORAL DAILY, #30 TAB 0 Refills Prov: Kristopher Kilpatrick MD 06/21/19 Nitrofurantoin Monohyd/M-Cryst* (MACROBID 100 MG*) 100 Mg Capsule 100 MG ORAL EVERY 12 HOURS for 7 Days, CAP Prov: Kristopher Kilpatrick MD 06/21/19 Patient Instructions: Dysuria Kristopher Kilpatrick MD Jun 21, 2019 19:07
== END 2019-06-21 18:00 | disposition home or self-care (01) ==
LOC: EMR 16:00
DX: K29.70 Gastritis, unspecified, without bleeding (principal); N39.0 Urinary tract infection, site not specified; I10 Essential (primary) hypertension; K21.9 Gastro-esophageal reflux disease without esophagitis; J45.909 Unspecified asthma, uncomplicated; Z88.0 Allergy status to penicillin; Z90.49 Acquired absence of other specified parts of digestive tract
CPT/HCPCS: 36415; 80053; 81003; 83690; 84484; 85025; 87086; 93005; 96374; 96375; 99284; J2405; J7040; S0028

== ENCOUNTER 2019-06-24 14:24 | Emergency (ER) | payer MEDICARE, OTHER ==
[~2019-06-24] VITALS: Ht 154.9 cm; Wt 54.4 kg
[~2019-06-24 14:24] MED LIST changes: +AMBIEN10 M1 ORAL; +AMLODIPINE BESY10 MG ORAL; +COLACE100 MG ORAL; +DICLOFEN 3%-HYA30 GM TP; +ELIQUIS5 MG PO; +FAMOTIDINE20 MG ORAL; +NITROFURANTOIN100 M2 ORAL; +ONDANSETRON ODT4 MG BC
[2019-06-24 14:41] VITALS: BP 130/70
--- NOTE | 2019-06-24 14:41 | NUR ---
ED Nurse Note: PT brought in by caretakerfor C/O lower ABD pain x 1 day. Pt also reports being constipated. Pt stated [place] for the same complaint. pt ambulatory at this time.
[2019-06-24] MEDS ORDERED: Metoclopramide 10mg/2ml Inj IVP ONE (15:00)
[2019-06-24] MEDS ORDERED: Omnipaque-300 100ml vial INJ PRN (15:00)
--- NOTE | 2019-06-24 15:01 | Emergency Room Report ---
History of Present Illness General Chief Complaint: Abdominal Pain Source: Patient, Friend, Medical Record Present Illness HPI Patient presents with abdominal pain is more on the left-hand side radiating towards her back. She was having constipation but then was able to move her bowels this morning. She has problems with frequent constipation. This pain is constant mid abdomen more left-hand side and radiating towards the left flank. She felt nauseated but denies any vomiting or dysuria. Her bell cleaner states that she has difficulty encouraging the patient to drink adequate fluids. The patient states she moved her bowels this morning but they were hard and small amount. No fevers, chills, sore throat, chest pain, palpitations, nausea, shortness of breath, joint pain, rashes, depression, anxiety, visual changes, dizziness, headache. The patient was admitted last year for abdominal pain and similar complaints. A CT scan showed dilated appendix and stranding. No surgery was performed. At that time her white count was normal. Discharge diagnoses: Hyponatremia UTI with Enterococci faecalis Emma vaginitis Abdominal pain Diverticulosis/without evidence of diverticulitis Constipation Fatty liver Pulmonary nodule Anemia of chronic disease Allergies: Coded Allergies: PENICILLINS (Verified Allergy, Unknown, Rash, 09/24/17) Patient History Past Medical History: see triage record, old chart reviewed Past Surgical History: other - Fracture left hip Social History: Denies: smoking, alcohol use, drug use Social History Narrative With bell cleaner Last Menstrual Period: N/A Now: No Reviewed Nursing Documentation: PMH: Agreed; PSxH: Agreed Nursing Documentation-PMH Hx Cardiac Problems: Yes - SLOW HEARTBEAT; HOSPITALIZED AT [facility] Hx Hypertension: Yes Hx Asthma: Yes Hx Cancer: No Hx Gastrointestinal Problems: Yes - appendicitis Hx Neurological Problems: No Review of Systems All Other Systems: negative except mentioned in HPI Physical Exam Vital Signs Date Time Temp Pulse Resp B/P (MAP) Pulse Ox O2 Delivery O2 Flow Rate FiO2 06/24/19 14:35 98.1 80 18 134/73 (93) 98 Room Air Sp02 EP Interpretation: reviewed, normal General Appearance: no apparent distress, alert, non-toxic, other - old and frail Head: normocephalic Eyes: bilateral eye normal inspection, bilateral eye PERRL, bilateral eye EOMI ENT: moist mucus membranes Neck: supple Respiratory: lungs clear, normal breath sounds Cardiovascular #1: regular rate, rhythm Cardiovascular #2: 2+ radial (R) Gastrointestinal: normal inspection, normal bowel sounds, no mass, non- distended, no guarding, no rebound, tenderness - Reported left lower quadrant and left flank Genitourinary: no CVA tenderness Musculoskeletal: back normal, normal range of motion, gait/station normal - Halting Neurologic: alert, motor strength/tone normal, oriented - X2, DTRs symmetric, sensory intact, cerebellar normal, speech normal, other - Decreased hearing Psychiatric: mood/affect normal Skin: no rash, warm/dry Medical Decision Making Diagnostic Impression: Primary Impression: Abdominal pain Qualified Codes: R10.32 - Left lower quadrant pain Additional Impression: Constipation Qualified Codes: K59.00 - Constipation, unspecified ER Course Patient presents with left side abdominal pain rating to her flank beginning last night with nausea. Differential includes pyelonephritis, constipation, urinary tract infection, electrolyte imbalance, pancreatitis, diverticulitis amongst others. Evaluation with EKG, CT and labs. Treatment with IV hydration and Tylenol. Patient placed on sales service professional. EKG without injury. Normal white count. CMP with minimal low sodium. Elevated alkaline phosphatase. Urinalysis negative except for ketones. CT without surgical pathology but increased stool load. Moving bowels with improvement after oral contrast. Patient improved. Still complaining about some left flank pain. Discussed results with bell cleaner. Discussed treatment plan. Patient stable for outpatient observation and treatment. Last Vital Signs Date Time Temp Pulse Resp B/P (MAP) Pulse Ox O2 Delivery O2 Flow Rate FiO2 06/24/19 18:35 97.9 85 19 122/[address]/MRI/US Diagnostic Results CT/MRI/US Diagnostic Results : Imaging Test Ordered: abd pelvis Impression 1. Recommend outpatient unenhanced CT chest to further evaluate for additional pulmonary nodules right lower lobe basilar 0.6 cm nodule seen. 2. Prominent colonic stool burden, which could be a cause for pain. 3. Otherwise no acute abnormality definitively identified to account for patient presentation. 4. Colonic diverticulosis without acute diverticulitis. 5. Rapid contrast transit of the GI tract could be incidental or could be seen in an infectious or inflammatory enteritis. 6. Multilevel age-related degenerative spine findings and osteopenia. Last Vital Signs Date Time Temp Pulse Resp B/P (MAP) Pulse Ox O2 Delivery O2 Flow Rate FiO2 06/24/19 18:35 97.9 85 19 122/78 98 Room Air Status: improved Disposition: HOME, SELF-CARE Condition: Improved Scripts Lactulose (LACTULOSE*) 20 Gm/30 Ml Solution 30 ML ORAL BID PRN for Constipation, #240 ML 0 Refills Prov: Camilo Hampton MD 06/24/19 Camilo Hampton MD Jun 24, 2019 15:01
--- NOTE | 2019-06-24 15:15 | NUR ---
ED Nurse Note: Blood sample sent down to lab
[2019-06-24 15:27] LABS: BASOPHILS % (AUTO) 1.6 % (0.0-2.0); EOSINOPHILS % (AUTO) 1.2 % (0.0-3.0); HEMATOCRIT 37.2 % (37.0-47.0); LYMPHOCYTES % (AUTO) 21.3 % (20.0-45.0); MEAN CORPUSCULAR VOLUME 87 FL (80-99); MONOCYTES % (AUTO) 6.9 % (1.0-10.0); NEUTROPHILS % (AUTO) 69.1 % (45.0-75.0); PLATELET COUNT 313 K/UL (150-450); RED BLOOD COUNT 4.26 M/UL (4.20-5.40); RED CELL DISTRIBUTION WIDTH 15.5 % (11.6-14.8); WHITE BLOOD COUNT 8.2 K/UL (4.8-10.8)
[2019-06-24 15:33] LABS: ANION GAP 15 mmol/L (5-15); BLOOD UREA NITROGEN 15 mg/dL (7-18); CALCIUM 9.8 MG/DL (8.5-10.1); CARBON DIOXIDE 21 MMOL/L (21-32); CHLORIDE 97 MMOL/L (98-107); CREATININE 0.8 MG/DL (0.55-1.30); POTASSIUM 4.5 MMOL/L (3.5-5.1); SODIUM 133 MMOL/L (136-145)
[2019-06-24 15:39] LABS: ALANINE AMINOTRANSFERASE 16 U/L (12-78); ALBUMIN 3.9 G/DL (3.4-5.0); ALBUMIN/GLOBULIN RATIO 0.8 (1.0-2.7); ALKALINE PHOSPHATASE 209 U/L (46-116); ASPARTATE AMINO TRANSFERASE 32 U/L (15-37); BILIRUBIN,TOTAL 0.3 MG/DL (0.2-1.0)
--- NOTE | 2019-06-24 15:58 | NUR ---
ED Nurse Note: urine sample sent down to lab
[2019-06-24 16:43] LABS: APPEARANCE,URINE CLEAR; BILIRUBIN, URINE NEGATIVE (NEGATIVE); GLUCOSE, URINE (UA) NEGATIVE (NEGATIVE); KETONES,URINE 1+ (NEGATIVE); LEUKOCYTE ESTERASE ,URINE 1+ (NEGATIVE); NITRITE,URINE NEGATIVE (NEGATIVE); PH,URINE 7 (4.5-8.0); PROTEIN,URINE NEGATIVE (NEGATIVE); UROBILINOGEN,URINE NORMAL MG/DL (0.0-1.0)
[2019-06-24 16:45] LABS: COLOR,URINE YELLOW
[2019-06-24 17:27] VITALS: BP 121/73
--- NOTE | 2019-06-24 17:27 | NUR ---
ED Nurse Note: pt taken to CT
--- NOTE | 2019-06-24 17:40 | NUR ---
ED Nurse Note: Back from TCT
--- NOTE | 2019-06-24 18:04 | Diagnostic Imaging Report ---
EXAM: CT Abdomen and Pelvis With Intravenous Contrast CLINICAL HISTORY: ABD PAIN TECHNIQUE: Axial computed tomography images of the abdomen and pelvis with intravenous contrast. CTDI is 5 mGy and DLP is 215 mGy-cm. One or more of the following dose reduction techniques were used: automated exposure control, adjustment of the mA and/or kV according to patient size, use of iterative reconstruction technique. Coronal and sagittal reformatted images were created and reviewed. COMPARISON: CT pelvis FINDINGS: Lung bases: Recommend outpatient unenhanced CT chest to further evaluate for additional pulmonary nodules right lower lobe basilar 0.6 cm nodule seen. Heart: Sternotomy with ASVD and coronary artery calcifications. ABDOMEN: Liver: Unremarkable. No mass. Gallbladder and bile ducts: Unremarkable. No calcified stones. No ductal dilation. Pancreas: Unremarkable. No mass. No ductal dilation. Spleen: Unremarkable. No splenomegaly. Adrenals: Unremarkable. No mass. Kidneys and ureters: Unremarkable. No solid mass. No hydronephrosis. Stomach and bowel: Prominent colonic stool burden, which could be a cause for pain. Colonic diverticulosis without acute diverticulitis. Rapid contrast transit of the GI tract could be incidental or could be seen in an infectious or inflammatory enteritis. No obstruction. PELVIS: Appendix: No findings to suggest acute appendicitis. Bladder: Unremarkable. No mass. Reproductive: Unremarkable as visualized. ABDOMEN and PELVIS: Intraperitoneal space: Unremarkable. No free air. No significant fluid collection. Bones/joints: Multilevel age-related degenerative spine findings and osteopenia. No acute fracture. No dislocation. Soft tissues: Bilateral buttock calcifications likely represents medication injections sites.. Vasculature: Unremarkable. No abdominal aortic aneurysm. Lymph nodes: Unremarkable. No enlarged lymph nodes. IMPRESSION: 1. Recommend outpatient unenhanced CT chest to further evaluate for additional pulmonary nodules right lower lobe basilar 0.6 cm nodule seen. 2. Prominent colonic stool burden, which could be a cause for pain. 3. Otherwise no acute abnormality definitively identified to account for patient presentation. 4. Colonic diverticulosis without acute diverticulitis. 5. Rapid contrast transit of the GI tract could be incidental or could be seen in an infectious or inflammatory enteritis. 6. Multilevel age-related degenerative spine findings and osteopenia.
[2019-06-24] MEDS ORDERED: LACTULOSE20 GM/301 ORAL (18:28)
[2019-06-24 18:35] VITALS: BP 122/78
--- NOTE | 2019-06-24 18:35 | NUR ---
ER DISCHARGE NOTE: Patient is cleared to be discharged per ERMD, pt is aox4, on room air, with stable vital signs. pt was given dc and prescription instructions, pt was able to verbalize understanding, pt id band and iv site removed without complications. pt is able to ambulate with steady gait. pt took all belongings and left with her daughter.
== END 2019-06-24 18:35 | disposition home or self-care (01) ==
LOC: EMR 14:50
DX: R10.32 Left lower quadrant pain (principal); K59.00 Constipation, unspecified; K57.90 Diverticulosis of intestine, part unspecified, without perforation or abscess without bleeding; Z88.0 Allergy status to penicillin; M85.80 Other specified disorders of bone density and structure, unspecified site
CPT/HCPCS: 36415; 74176; 80053; 81003; 83690; 84484; 85025; 85610; 85730; 96361; 96374; 99284; J2765; J7030